=== PATIENT | female | born 2000 | race Caucasian/White ===

== ENCOUNTER 2018-05-04 18:33 | Emergency (ER) | payer OTHER, BC ==
[~2018-05-04] VITALS: Ht 162.6 cm; Wt 62.5 kg
[2018-05-04 18:36] VITALS: TEMP 36.8; Ht 162.6 cm; Wt 62.5 kg
[2018-05-04] MEDS ORDERED: SODIUM CHLORIDE 0.9% 1000ML 2,000 ML IV STA ×2 (19:03→20:23)
[2018-05-04] MEDS ORDERED: IBUPROFEN 600 MG TAB PO STA (19:03)
[2018-05-04] MEDS ORDERED: PROPARACAINE HCL 0.5% OP SOLN 15 ML BTL OPL STA (19:03)
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
[2018-05-04 22:14] VITALS: BP 120/70; PULSE 79; O2SAT 100
== END 2018-05-04 22:15 | disposition home or self-care (01) ==
LOC: C.EDB 18:35 → C.EDD 22:15
DX: T26.92XA Corrosion of left eye and adnexa, part unspecified, initial encounter (principal); T54.3X1A Toxic effect of corrosive alkalis and alkali-like substances, accidental (unintentional), initial encounter; X58.XXXA Exposure to other specified factors, initial encounter